=== PATIENT | male | born 1985 | race Caucasian/White ===

== ENCOUNTER 2022-10-04 15:04 | Emergency (ER) | payer MEDICAID ==
[~2022-10-04] VITALS: Ht 175.3 cm; Wt 73.0 kg
[2022-10-04 16:58] VITALS: BP 111/83
== END 2022-10-04 17:24 | disposition home or self-care (01) ==
LOC: ER 15:04
DX: Z00.00 Encounter for general adult medical examination without abnormal findings (principal)
CPT/HCPCS: 99283

== ENCOUNTER 2023-02-10 15:21 | Emergency (ER) | payer MEDICAID, OTHER ==
[~2023-02-10] VITALS: Ht 180.3 cm; Wt 75.0 kg
[2023-02-10 15:23] VITALS: O2SAT 99
[2023-02-10] MEDS ORDERED: IBUPROFEN 600MG TABLET PO ONE (15:45)
[2023-02-10] MEDS ORDERED: CEPH500C2 MT (16:43)
[2023-02-10] MEDS ORDERED: SULF1TAB48 MT (16:44)
[2023-02-10] MEDS ORDERED: OXYCODONE HCL/ACETAMINOPHEN 5/325MG TABLET PO ONE (16:45)
[2023-02-10 17:05] VITALS: BP 138/58; PULSE 85; RESP 18; TEMP 97.4
== END 2023-02-10 17:07 | disposition home or self-care (01) ==
LOC: ER 15:21
DX: L03.032 Cellulitis of left toe (principal)
CPT/HCPCS: 73630; 99283; Z7610